=== PATIENT | male | born 1935 | race Caucasian/White ===

== ENCOUNTER 2016-11-15 14:30 | Emergency (ER) | payer MEDICARE ==
[~2016-11-15] VITALS: Ht 177.8 cm; Wt 77.8 kg
[2016-11-15] MEDS ORDERED: SODIUM CHLORIDE FLUSH 10ML SYR IVF ONE (15:00)
[2016-11-15] MEDS ORDERED: PLEASE ENTER ALLERGIES MC SCH ×2 (15:30)
[2016-11-15 15:32] LABS: BLOOD UREA NITROGEN 24 mg/dL (7-18)
[2016-11-15] MEDS ORDERED: WARF5TAB PO (15:48)
[2016-11-15] MEDS ORDERED: ENAL1TAB4 PO (15:48)
[2016-11-15] MEDS ORDERED: DOXA8TAB2 PO (15:48)
[2016-11-15 16:14] VITALS: BP 135/81
== END 2016-11-15 16:46 | disposition home or self-care (01) ==
LOC: ED 16:38
DX: R55 Syncope and collapse (principal); I48.91 Unspecified atrial fibrillation; Z79.01 Long term (current) use of anticoagulants
CPT/HCPCS: 36415; 70450; 80048; 82040; 85025; 85610; 85730; 93005; 99285